=== PATIENT | male | born 1935 | race Caucasian/White ===

== ENCOUNTER 2020-01-19 05:46 | Day surgery (SDC) | payer OTHER ==
[2020-01-14 12:48] LABS: BASOPHILS % (AUTO) 0.5 % (0.0-5.0); EOSINOPHILS % (AUTO) 3.6 % (0.0-8.0); LYMPHOCYTES % (AUTO) 30.3 % (21.0-51.0); MEAN CORPUSCULAR HGB CONC 34.1 g/dL (32.0-36.0); MEAN CORPUSCULAR VOLUME 99.7 fL (79-99); MONOCYTES % (AUTO) 4.3 % (3.0-13.0); PLATELET COUNT (AUTO) 145 K/uL (130-400); RED BLOOD CELL COUNT(AUTO) 2.91 MIL/uL (4.50-6.20); RED CELL DISTRIBUTION WIDTH 14.3 % (11.0-15.5); WHITE BLOOD COUNT (AUTO) 3.9 K/uL (4.8-10.8)
[2020-01-14 13:07] LABS: CREATININE 1.8 mg/dL (0.5-1.5); POTASSIUM 4.6 mmol/L (3.5-5.1)
[2020-01-16 09:39] VITALS: BP 151/63
--- NOTE | 2020-01-16 11:39 | NUR ---
LABS INFORMED DR. العلي OF ABNORMAL WBC/H/H/BUN/CREA. NO ORDERS RECEIVED. PROCEED WITH PLANNED PROCEDURE.
--- NOTE | 2020-01-16 13:30 | NUR ---
RE: MEDICATIONS INFORMED DR SHORT REGARDING PATIENT TAKING CLOPIDOGREL AND CILOSTAZOL THIS MORNING. PER DR SHORT, PATIENT CAN TAKE THOSE MEDICATIONS UP UNTIL TOMORROW AND THEN HE NEEDS TO HOLD THEM. MAY PROCEED WITH SCHEDULED SURGERY ORDERED. INFORMED AND INSTRUCTED PATIENT OF THIS, AND PATIENT VERBALIZED UNDERSTANDING.
[2020-01-19] VITALS (13 sets, daily range): BP systolic 140–162; BP diastolic 58–79
[~2020-01-19] VITALS: Ht 182.9 cm; Wt 118.0 kg
[~2020-01-19 05:46] MED LIST: ALLO100T PO; AMLO10TA7 PO; ASPI-449 PO; CARV25TA PO; CILO100T PO; CLOP75TA32 PO; DOCU100C33 PO; FINA5TAB41 PO; HYDR-4154 PO; HYDR25TA PO; ISOS30TA6 PO; MV-M1TAB20 PO; PANT40TA54 PO; VITA1TAB22 PO
[2020-01-19] MEDS ORDERED: CEFAZOLIN SODIUM 1 GM VIAL IVP SCH (06:00)
[2020-01-19] MEDS ORDERED: LACTATED RINGERS 1000ML 1,000 ML IV ONE (06:11)
[2020-01-19] MEDS ORDERED: LIDOCAINE PF 2% 5ML ABBOJECT ONE (07:35)
[2020-01-19] MEDS ORDERED: MIDAZOLAM HCL 1 MG/ML 2ML VIAL ONE (07:36)
[2020-01-19] MEDS ORDERED: PROPOFOL 10 MG/ML 20ML VIAL IV ONE ×2 (07:36→08:36)
[2020-01-19] MEDS ORDERED: FENTANYL CITRATE PF 50 MCG/1 ML 2ML VIAL ONE (07:36)
[2020-01-19] MEDS ORDERED: ONDANSETRON HCL 4 MG/2 ML VIAL ONE (07:37)
[2020-01-19] MEDS ORDERED: LIDOCAINE HCL MDV 0.5% 50ML VIAL IJ ONE (07:45)
[2020-01-19] MEDS ORDERED: CEFAZOLIN SODIUM 1 GM VIAL ONE (07:51)
[2020-01-19] MEDS ORDERED: BUPIVACAINE/PF 0.25% 30ML VIAL IJ ONE (07:51)
[2020-01-19] MEDS ORDERED: CEPH500B PO (08:54)
[2020-01-19] MEDS ORDERED: TYL2 PO (08:54)
--- NOTE | 2020-01-19 09:50 | NUR ---
fluid intake: drinking sips of water with no complaints of nausea or emesis, total of 240 cc.
--- NOTE | 2020-01-19 09:50 | NUR ---
urinary elimination: voided 600cc clear yellow urine via urinal.
== END 2020-01-19 10:25 | disposition home or self-care (01) ==
LOC: DAH 05:46
PROVIDERS: ATTEND Orthopaedic Surgery
DX: G56.03 Carpal tunnel syndrome, bilateral upper limbs (principal); Z20.828 Contact with and (suspected) exposure to other viral communicable diseases; E11.22 Type 2 diabetes mellitus with diabetic chronic kidney disease; I12.9 Hypertensive chronic kidney disease with stage 1 through stage 4 chronic kidney disease, or unspecified chronic kidney disease; N18.3 Chronic kidney disease, stage 3 (moderate); I25.10 Atherosclerotic heart disease of native coronary artery without angina pectoris; K21.9 Gastro-esophageal reflux disease without esophagitis; E11.51 Type 2 diabetes mellitus with diabetic peripheral angiopathy without gangrene; E66.01 Morbid (severe) obesity due to excess calories; M10.9 Gout, unspecified; M19.90 Unspecified osteoarthritis, unspecified site; Z79.82 Long term (current) use of aspirin; Z79.899 Other long term (current) drug therapy; Z87.820 Personal history of traumatic brain injury; Z72.89 Other problems related to lifestyle; Z87.891 Personal history of nicotine dependence; Z95.5 Presence of coronary angioplasty implant and graft; Z98.890 Other specified postprocedural states; Z90.49 Acquired absence of other specified parts of digestive tract; Z95.0 Presence of cardiac pacemaker; Z82.49 Family history of ischemic heart disease and other diseases of the circulatory system; Z82.69 Family history of other diseases of the musculoskeletal system and connective tissue
CPT/HCPCS: 36415; 64721; 80048; 82948; 85025; 93005; A4215; A4216; A4221; A4222; A4223 ×3; A4606; A4657; A4663; A4930; A5120; A6223; C9803; J0690 ×2; J2250; J2405; J2704 ×2; J3010; J3490 ×2; J7120; U0003; J2001

== ENCOUNTER 2020-03-10 05:55 | Day surgery (SDC) | payer OTHER ==
[2020-03-03 11:18] LABS: BASOPHILS % (AUTO) 0.6 % (0.0-5.0); HEMATOCRIT 28.3 % (42-54); LYMPHOCYTES % (AUTO) 27.7 % (21.0-51.0); MEAN CORPUSCULAR HEMOGLOBIN 34.8 pg (27.0-33.0); MEAN CORPUSCULAR HGB CONC 34.6 g/dL (32.0-36.0); MEAN CORPUSCULAR VOLUME 100.4 fL (79-99); MONOCYTES % (AUTO) 4.3 % (3.0-13.0); NEUTROPHILS % (AUTO) 62.8 % (40.0-77.0); PLATELET COUNT (AUTO) 124 K/uL (130-400); RED BLOOD CELL COUNT(AUTO) 2.82 MIL/uL (4.50-6.20); RED CELL DISTRIBUTION WIDTH 13.4 % (11.0-15.5); WHITE BLOOD COUNT (AUTO) 3.3 K/uL (4.8-10.8)
[2020-03-03 11:26] LABS: CREATININE 1.6 mg/dL (0.5-1.5); POTASSIUM 4.4 mmol/L (3.5-5.1)
[2020-03-03 12:43] LABS: INR 0.93 (0.85-1.15); PROTHROMBIN TIME 10.1 SEC (9.6-11.6)
--- NOTE | 2020-03-09 12:23 | NUR ---
EKG EKG REPORTED TO DR. PARDO. NO FURTHER ORDERS GIVEN OK TO PROCEED WITH PLANNED SURGERY
--- NOTE | 2020-03-09 16:10 | NUR ---
LABS ABNORMAL LABS REPORTED TO DR. SHORT NO FURTHER ORDERS GIVEN
[~2020-03-10] VITALS: Ht 182.9 cm; Wt 117.8 kg
[2020-03-10] VITALS (17 sets, daily range): BP systolic 104–150; BP diastolic 45–71
[~2020-03-10 05:55] MED LIST changes: +AMLO-258 PO; -AMLO10TA7 PO
[2020-03-10] MEDS ORDERED: CEFAZOLIN SODIUM 1 GM VIAL IVP SCH (06:00)
[2020-03-10] MEDS ORDERED: LACTATED RINGERS 1000ML 1,000 ML IV ONE (06:19)
[2020-03-10] MEDS ORDERED: CEFAZOLIN SODIUM 1 GM VIAL ONE (06:30)
[2020-03-10] MEDS ORDERED: BUPIVACAINE/PF 0.25% 30ML VIAL IJ ONE (06:30)
[2020-03-10] MEDS ORDERED: BUPIVACAINE/PF 0.5% 30ML VIAL ONE (07:11)
[2020-03-10] MEDS ORDERED: LIDOCAINE PF 2% 5ML ABBOJECT ONE (07:31)
[2020-03-10] MEDS ORDERED: ONDANSETRON HCL 4 MG/2 ML VIAL ONE (07:31)
[2020-03-10] MEDS ORDERED: DEXAMETHASONE SOD PHOSPHATE 10MG/ML 1ML VIAL ONE (07:31)
[2020-03-10] MEDS ORDERED: MIDAZOLAM HCL 1 MG/ML 2ML VIAL ONE (07:31)
[2020-03-10] MEDS ORDERED: PROPOFOL 10 MG/ML 20ML VIAL IV ONE (07:31)
[2020-03-10] MEDS ORDERED: SUCCINYLCHOLINE 200MG/10ML SYR ONE (07:31)
[2020-03-10] MEDS ORDERED: FENTANYL CITRATE PF 50 MCG/1 ML 2ML VIAL ONE ×2 (07:32→08:46)
[2020-03-10] MEDS ORDERED: MEPERIDINE-PF 25 MG/ML SYG ONE (07:34)
[2020-03-10] MEDS ORDERED: KETOROLAC TROMETHAMINE 30MG/ML ONE (07:34)
[2020-03-10] MEDS ORDERED: EPHEDRINE SULFATE 50 MG/ML AMPULE ONE (08:35)
[2020-03-10] MEDS ORDERED: GLYCOPYRROLATE 1 MG/5 ML SYRINGE ONE (08:41)
[2020-03-10] MEDS ORDERED: CEPH500B PO (09:12)
[2020-03-10] MEDS ORDERED: ACET1TAB25 PO (09:12)
== END 2020-03-10 11:05 | disposition home or self-care (01) ==
LOC: DAH 05:55
PROVIDERS: ATTEND Orthopaedic Surgery
DX: G56.03 Carpal tunnel syndrome, bilateral upper limbs (principal); Z20.828 Contact with and (suspected) exposure to other viral communicable diseases; Z79.01 Long term (current) use of anticoagulants
CPT/HCPCS: 36415; 64721; 80048; 82948 ×3; 85025; 85610; 93005; A4565; A4649; A4930; A6223; C9803; J0330; J0690 ×2; J1100; J1885; J2001; J2175; J2250; J2405; J2704; J3010 ×2; J3490 ×3; J7120; U0003

== ENCOUNTER → 2020-10-01 | Outpatient (CLI) | payer OTHER ==
[~2020-10-01] VITALS: Ht 186.7 cm; Wt 117.9 kg
[~2020-10-01] MED LIST changes: +ACET1TAB25 PO; +ACETAMINOPHEN 325 MG TAB PO PRN; +ALLOPURINOL 100 MG TABLET PO SCH; +AMLODIPINE BESYLATE 5 MG TAB PO SCH; +CARVEDILOL 25 MG TABLET PO SCH; +CEFAZOLIN SODIUM 1 GM VIAL IVP SCH; +CEFAZOLIN SODIUM 1 GM VIAL ONE; +CEPH500B PO; +CHOL400T4 PO; +CLOPIDOGREL BISULFATE 75 MG TAB PO SCH; +CYAN500T9 PO; +DOCUSATE SODIUM 100 MG CAP PO SCH; +FINASTERIDE 5 MG TABLET PO SCH; +HYDRALAZINE HCL 25 MG TABLET PO SCH; +HYDROCHLOROTHIAZIDE 25 MG TABLET PO SCH; -ISOS30TA6 PO; +ISOS30TA92 PO; +ISOSORBIDE MONO 30MG TAB SR PO SCH; +LIDOCAINE PF 2% 5ML ABBOJECT ONE; +MIDAZOLAM HCL 1 MG/ML 2ML VIAL ONE; -MV-M1TAB20 PO; +OCTYL 2-CYANOACRYLATE 1 EACH TP ONE; +ONDANSETRON HCL 4 MG/2 ML VIAL ONE; +PANTOPRAZOLE SODIUM 40 MG TABLET.DR PO SCH; +PROPOFOL 10 MG/ML 20ML VIAL IV ONE; +ROCURONIUM 10MG/1ML SYR 10 MG/ML ML ONE; +SODIUM CHLORIDE 0.9% 1000ML 1,000 ML IV ONE; +TRAMADOL HCL 50 MG TABLET PO PRN; -VITA1TAB22 PO
[2020-10-01 12:04] LABS: BASOPHILS % (AUTO) 0.4 % (0.0-5.0); EOSINOPHILS % (AUTO) 4.8 % (0.0-8.0); HEMATOCRIT 26.9 % (42-54); LYMPHOCYTES % (AUTO) 30.2 % (21.0-51.0); MEAN CORPUSCULAR HEMOGLOBIN 34.9 pg (27.0-33.0); MEAN CORPUSCULAR HGB CONC 33.1 g/dL (32.0-36.0); MEAN CORPUSCULAR VOLUME 105.5 fL (79-99); MONOCYTES % (AUTO) 5.2 % (3.0-13.0); PLATELET COUNT (AUTO) 87 K/uL (130-400); RED BLOOD CELL COUNT(AUTO) 2.55 MIL/uL (4.50-6.20); RED CELL DISTRIBUTION WIDTH 15.1 % (11.0-15.5); WHITE BLOOD COUNT (AUTO) 2.5 K/uL (4.8-10.8)
[2020-10-01 12:17] LABS: CREATININE 1.6 mg/dL (0.5-1.5); POTASSIUM 4.4 mmol/L (3.5-5.1)
[2020-10-01 12:55] VITALS: BP 152/65
[2020-10-01 13:06] LABS: INR 0.99 (0.85-1.15); PROTHROMBIN TIME 10.8 SEC (9.6-11.6)
[2020-10-01 13:08] LABS: PARTIAL THROMBOPLASTIN TIME 25.4 SEC (26.3-35.5)
[2020-10-01 14:08] LABS: EOSINOPHILS % (MANUAL) 3 % (1-6); LYMPHOCYTES % (MANUAL) 20 % (22-44); MONOCYTES % (MANUAL) 3 % (2-9); SEGMENTED NEUTROPHILS % 74 % (40-70)
[2020-10-01 14:09] LABS: MAN.DIFF COMMENT-IMPRESSION MANUAL DIFFERENTIAL
[2020-10-01 14:13] LABS: PLATELET MORPHOLOGY COMMENT DECREASED
[2020-10-04 09:35] LABS: CREATININE 1.5 mg/dL (0.5-1.5)
[2020-10-04 09:42] LABS: ALBUMIN 3.3 g/dL (3.5-5.0); BILIRUBIN,TOTAL 0.3 mg/dL (0.2-1.0); TOTAL PROTEIN, SERUM 6.4 g/dL (6.0-8.3)
[2020-10-04 09:49] VITALS: BP 162/67
== END | disposition home or self-care (01) ==
LOC: DAH 10:00 → DAHIP 10-04 07:53 → UNDOADMIN 10-04 07:53 → EDSTATUS 10-04 09:00 → UNDODISIN 10-04 14:45
PROVIDERS: ATTEND Thoracic Surgery (Cardiothoracic Vascular Surgery)
DX: I73.9 Peripheral vascular disease, unspecified (principal); Z20.822 Contact with and (suspected) exposure to COVID-19; Z79.01 Long term (current) use of anticoagulants; Z53.8 Procedure and treatment not carried out for other reasons
CPT/HCPCS: 36415 ×2; 71046; 80053; 83880; 85025; 85610; 85730; 86850 ×2; 86900 ×2; 86901 ×2; 87426; 93005; A6260; U0003; 80048